=== PATIENT | female | born 1990 | race Caucasian/White ===

== ENCOUNTER 2017-03-27 17:39 | Outpatient (CLI) | payer OTHER ==
[~2017-03-27] VITALS: Ht 165.1 cm; Wt 76.0 kg
[2017-03-27] MEDS ORDERED: STOO100C PO (18:01)
[2017-03-27] MEDS ORDERED: PRENTAB9 PO (18:01)
[2017-03-27] MEDS ORDERED: FERR325T3 PO (18:01)
[2017-03-27] MEDS ORDERED: ASCO25TA PO (18:01)
[2017-03-27 18:04] VITALS: BP 114/55
== END 2017-03-27 19:00 | disposition home or self-care (01) ==
LOC: M LDO 17:39
PROVIDERS: ATTEND Advanced Practice Midwife
DX: O36.8130 Decreased fetal movements, third trimester, not applicable or unspecified (principal); Z3A.36 36 weeks gestation of pregnancy

== ENCOUNTER 2017-04-07 02:18 | Inpatient (IN) | payer OTHER ==
[~2017-04-07] VITALS: Ht 165.1 cm; Wt 75.0 kg
[~2017-04-07 02:18] MED LIST: ASCO25TA PO; FERR325T3 PO; PRENTAB9 PO; STOO100C PO
[2017-04-07] MEDS ORDERED: LR 1,000 ML IV SCH (03:40)
[2017-04-07 03:43] LABS: MEAN CORPUSCULAR HEMOGLOBIN 26.5 pg (27.0-33.0); MEAN CORPUSCULAR HGB CONC 32.6 g/dl (32.0-36.5); MEAN CORPUSCULAR VOLUME 81.3 fl (80.0-96.0); RED CELL DISTRIBUTION WIDTH 18.7 % (11.5-14.5); WHITE BLOOD COUNT 12.6 K/mm3 (4.0-10.0)
--- NOTE | 2017-04-07 04:10 | HPEPDOC ---
Obstetrical History & Physical General Date of Admission Apr 07, 2017 at 02:48 History of Present Illness 26 y/o at 40+0 with painful reg ctx's most of the night. No LOF/signif VB. Pos FM throughout. Admitted by RN and I was called at home with NST Cat 1 and 6 cm. Got into the tub and now out, just checked by same RN and is now 9 cm /BB. 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 History: No pertinent history Past Medical History Medical History Anxiety, depression, PTSD-all 3 well controlled-no meds Mild anemia-treated appropr Surgical History: Denies/None (colonoscopy 2009) Family History Significant Family History: No pertinent family hx Social History Marital Status: Family situation: Spouse/partner home Psychosocial History: Anxiety, Depression, PTSD * Smoker: non-smoker Alcohol: Denies Drugs: denies Abuse Violence Screening Have you been hit/kicked/slapp: No Have you been sexually assault: No Imunizations Tdap status: current Influenza Status: current Allergies Coded Allergies: Amoxicillin (Verified Allergy, Mild, PT STATES RASH, 03/27/17) Penicillins (Verified Allergy, Mild, PT STATES RASH, 03/27/17) Sulfa Antibiotics (Verified Allergy, Mild, RASH, 03/27/17) Albuterol (Verified Adverse Reaction, Mild, STATES TACHYCARDIA, 03/27/17) Medications Scheduled Ascorbic Acid (Vitamin C) 250 Mg Tab, 250 MG PO TID Docusate Sodium (Stool Softener) 100 Mg Cap, 100 MG PO DAILY Ferrous Sulfate (Ferrous Sulfate) 325 Mg Tab, 325 MG PO TID Multivitamins/ ( 27-0.8 mg) 1 Tab Tab, 1 TAB PO DAILY Physical Examination Physical Examination GENERAL: Alert and oriented times three. ABDOMEN: Gravid and non-tender to touch. FETUS: Is vertex (VTX) by sterile vaginal examination (SVE) per RUG CLEANER RATE: Regular rate and rhythm. LUNGS: Clear to auscultation (CTA). EXTREMITIES: No edema. Laboratory Data 24H LABS Laboratory Tests 2 04/07/17 03:03: Serology Scanned Report Hepatitis B Testing 04/07/17 03:30: CBC/BMP Laboratory Tests 04/07/17 03:30 Red Blood Count 4.54, Mean Corpuscular Volume 81.3, Mean Corpuscular Hemoglobin 26.5 L, Mean Corpuscular Hemoglobin Concent 32.6, Red Cell Distribution Width 18.7 H Urine Culture: No Growth Pertinent Laboratoy Data Blood Type: B+ RBC Antibody Screen: Negative HIV: Negative Hepatitis B: Negative Hepatitis C: Unknown Rapid Plasma Reagin: Immune Rubella: Immune Varicella: Immune Chlamydia/Gonorrhea: Negative Group B Streptococcus: Negative Quad Screen Test: Declined Cystic Fibrosis: Negative Anatomy Ultrasound Ultrasound Date: Nov 19, 2016 Placenta Location: Anterior Normal Anatomy: Yes Placenta Previa: No Steroid Therapy Steroid Therapy: No Assessment Variability: Moderate Accelerations: Positive Decelerations: None Tocometer Contractions: Yes Frequency: regular Duration: greater than 60 seconds Strength: palpated as strong Assessment/Plan Assessment Active labor. GBS neg. Plan Admit and orient. 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 Diet: clrs Group B Streptococcus (GBS) negative Labs and intravenous (IV) per unit protocol. Counseled on Pitocin and induction of labor (IOL). Lactated Ringers (LR): 125 mL/hr. Anticipate normal spontaneous delivery () C-S as appopriate, very unlikely Sessions SESSIONS,KAYLEIGH Pena MD Apr 07, 2017 04:10
[2017-04-07] MEDS ORDERED: OXYTOCIN 30 UNITS IN 0.9% NaCl 500ML IV BAG (J2590) As Ordered ONE (04:29)
[2017-04-07] MEDS ORDERED: OXYTOCIN DRIP 30 UNITS in APPROPRIATE DILUENT 1 EA IV SCH ×2 (05:17→06:58)
--- NOTE | 2017-04-07 05:27 | DNPDOC ---
[facility] Delivery Note Delivery Note DATE OF DELIVERY: Apr 07, 2017 at 02:48 PREDELIVERY DIAGNOSIS: 40 0/7 weeks' gestation and labor. POST DELIVERY DIAGNOSIS: Delivered. 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 Cloud ANESTHESIA: natural, lidocaine 1% for repair ESTIMATED BLOOD LOSS: 300 mL. FINDINGS: wt pending, female , Score 8/9, bandolero cord DELIVERY SUMMARY: Pushed very well, SROM with clr fluid prior to starting. KELLIE , No delay of the vtx or ant/post shoulders. To abd, good tone and spont cry. Cord C/C by FOB. Placenta intact. Fundus firm, pit going wide open. 2nd degr lac injected with 12 cc's 1%lidocaine, repaired with 3-0 vicryl. Good cosmesis/ hemostasis, vladimir'd well. Sessions MD CLOUD,KAYLEIGH Pena MD Apr 07, 2017 05:27
[2017-04-07] MEDS ORDERED: RHOGAM 300 MCG (1500 IU) INJ (J2790) IM SCH (05:30)
[2017-04-07] MEDS ORDERED: METOCLOPRAMIDE INJ 10MG/2ML VIAL (J2765) IV PRN (05:30)
[2017-04-07] MEDS ORDERED: DIBUCAINE 1% OINTMENT 30GM TOP PRN (05:30)
[2017-04-07] MEDS ORDERED: LIDOCAINE 1% MDV INJ 50 ML VIAL INFIL ONE (05:30)
[2017-04-07] MEDS ORDERED: MEASLES,MUMPS,RUBELLA VACCINE INJ (MMR-II) (90707) SC SCH (05:30)
[2017-04-07] MEDS ORDERED: miSOPROStol 200 MCG TAB (S0191) PR ONE (07:00)
[2017-04-07] MEDS ORDERED: METHYLERGONOVINE MALEATE 0.2 MG/ML VIAL (J2210) IM ONE (07:00)
[2017-04-07 07:10] VITALS: BP 124/73
--- NOTE | 2017-04-07 07:14 | IPNPDOC ---
Text Note Date of Service The patient was seen on 04/07/17. NOTE Called to room by RN, extra bleeding more than normal, Ut always firms up with massage but 400 EBL on top of my original 300 with delivery VSS Ut at U, not firm Bimanual done, vladimir'd moderately well, clot at SCOOTER evacuated, massage x3 thereafter with no clots, nl lochia only, massaged to firm Repair intact after sweep Limited TAUS with ~2 cm heterogeneous material present, no areas measure wider than this from fundus to Cx Given methergine 0.2 mg IM and Cytotec 1000 mcg [place] 15 min after the above, again massaged the Ut and now U, firm, nothing from vag noted Plan for watching close and CBC at noon and tomorrow AM, PO methergine series. SBAR to Dr Jorge at 0730. Sessions Nico FERRARI, I+O Nico LESTER I+O Laboratory Tests 04/07/17 03:30 Red Blood Count 4.54, Mean Corpuscular Volume 81.3, Mean Corpuscular Hemoglobin 26.5 L, Mean Corpuscular Hemoglobin Concent 32.6, Red Cell Distribution Width 18.7 H I&O- Last 24 Hours up to 6 AM 04/07/17 06:00 Output Total 300 ml Balance -300 ml SESSIONS,KAYLEIGH Pena MD Apr 07, 2017 07:14
[2017-04-07] MEDS: IBUPROFEN 800 MG TAB PO PRN (07:22)
[2017-04-07 08:58] VITALS: BP 133/62
[2017-04-07] MEDS: DOCUSATE SODIUM 100 MG CAP PO SCH ×2 (09:00→21:49)
[2017-04-07] MEDS: PRENATAL VITAMINS CHEWABLE TABLET PO SCH (09:00)
[2017-04-07] MEDS: METHYLERGONOVINE MALEATE 0.2 MG TAB PO SCH ×4 (11:17→23:24)
[2017-04-07 12:27] LABS: MEAN CORPUSCULAR HEMOGLOBIN 26.9 pg (27.0-33.0); MEAN CORPUSCULAR VOLUME 81.4 fl (80.0-96.0); RED CELL DISTRIBUTION WIDTH 18.6 % (11.5-14.5)
[2017-04-07] MEDS: ACETAMINOPHEN TAB 650MG DOSE (2X325MG) PO PRN ×2 (14:28→21:57)
[2017-04-07 18:00] VITALS: BP 131/80
[2017-04-08] MEDS: METHYLERGONOVINE MALEATE 0.2 MG TAB PO SCH (03:15)
[2017-04-08 06:06] VITALS: BP 111/59
[2017-04-08 06:40] LABS: MEAN CORPUSCULAR HEMOGLOBIN 27.1 pg (27.0-33.0); MEAN CORPUSCULAR HGB CONC 33.4 g/dl (32.0-36.5); MEAN CORPUSCULAR VOLUME 81.3 fl (80.0-96.0); RED CELL DISTRIBUTION WIDTH 18.6 % (11.5-14.5); WHITE BLOOD COUNT 11.2 K/mm3 (4.0-10.0)
[2017-04-08] MEDS: DOCUSATE SODIUM 100 MG CAP PO SCH ×2 (09:02→20:40)
[2017-04-08] MEDS: IBUPROFEN 800 MG TAB PO PRN ×2 (09:02→16:50)
[2017-04-08] MEDS: PRENATAL VITAMINS CHEWABLE TABLET PO SCH (09:02)
[2017-04-08 18:01] VITALS: BP 124/65
[2017-04-08] MEDS: ACETAMINOPHEN TAB 650MG DOSE (2X325MG) PO PRN (20:40)
[2017-04-09] MEDS: IBUPROFEN 800 MG TAB PO PRN (00:04)
--- NOTE | 2017-04-09 05:24 | IPNPDOC ---
Text Note Date of Service The patient was seen on 04/09/17. NOTE PPD2 prog note States feeling well, no complaints. No heavy VB. Pain controlled. Voiding, ambulatory. Bonding well and bottle feeding well. VSSAF CTAB RRR Ut at U-2, firm Ext no CCE a/p: Doing well. d/c this morning. To bonding if baby not released. Sessions VS,Nico, I+O VSNico I+O Laboratory Tests 04/08/17 06:19 Red Blood Count 3.85 L, Mean Corpuscular Volume 81.3, Mean Corpuscular Hemoglobin 27.1, Mean Corpuscular Hemoglobin Concent 33.4, Red Cell Distribution Width 18.6 H Vital Signs Date Time Temp Pulse Resp B/P (MAP) Pulse Ox O2 Delivery O2 Flow Rate FiO2 04/08/17 18:01 98.2 77 18 124/65 (84) 04/07/17 18:00 98 Room Air SESSIONS,KAYLEIGH Pena MD Apr 09, 2017 05:24
--- NOTE | 2017-04-09 05:25 | DS.PDOC ---
Discharge Summary General Date of Admission Apr 07, 2017 at 02:48 Date of Discharge [id number] Discharge Summary PROCEDURES PERFORMED DURING STAY: spontaneous vaginal delivery ADMITTING DIAGNOSIS: 1. Active Labor DISCHARGE DIAGNOSES: 1. Healthy female HOSPITAL COURSE: Admitted for active labor and delivery. Uncomplicated, see delivery note. DISCHARGE MEDICATIONS: Motrin, Tylenol, Colace, Dibucaine. Priti to start not before 4 weeks . Physical exam: see note from this morning LABORATORY DATA: Please see below. ACTIVITY: as tolerated. Nothing in vagina for 6 weeks. DIET: regular DISPOSITION:stable TIME SPENT ON DISCHARGE: Greater than 15 minutes. Sessions Vital Signs/I&Os Vital Signs Date Time Temp Pulse Resp B/P (MAP) Pulse Ox O2 Delivery O2 Flow Rate FiO2 04/08/17 18:01 98.2 77 18 124/65 (84) 04/07/17 18:00 98 Room Air Laboratory Data CBC/BMP Laboratory Tests 04/08/17 06:19 Red Blood Count 3.85 L, Mean Corpuscular Volume 81.3, Mean Corpuscular Hemoglobin 27.1, Mean Corpuscular Hemoglobin Concent 33.4, Red Cell Distribution Width 18.6 H Discharge Medications Scheduled Ascorbic Acid (Vitamin C) 250 Mg Tab, 250 MG PO TID, (Reported) Docusate Sodium (Stool Softener) 100 Mg Cap, 100 MG PO DAILY, (Reported) Ferrous Sulfate (Ferrous Sulfate) 325 Mg Tab, 325 MG PO TID, (Reported) Multivitamins/ ( 27-0.8 mg) 1 Tab Tab, 1 TAB PO DAILY, (Reported ) Allergies Coded Allergies: Amoxicillin (Verified Allergy, Mild, PT STATES RASH, 03/27/17) Penicillins (Verified Allergy, Mild, PT STATES RASH, 03/27/17) Sulfa Antibiotics (Verified Allergy, Mild, RASH, 03/27/17) Albuterol (Verified Adverse Reaction, Mild, STATES TACHYCARDIA, 03/27/17) SESSIONS,KAYLEIGH Pena MD Apr 09, 2017 05:25
[2017-04-09 05:51] VITALS: BP 112/58
[2017-04-09] MEDS: DOCUSATE SODIUM 100 MG CAP PO SCH (09:16)
[2017-04-09] MEDS: PRENATAL VITAMINS CHEWABLE TABLET PO SCH (09:16)
[2017-04-09] MEDS: ACETAMINOPHEN TAB 650MG DOSE (2X325MG) PO PRN (09:46)
[2017-04-09] MEDS ORDERED: COLA100C5 PO (11:26)
[2017-04-09] MEDS ORDERED: ACET50TA PO (11:26)
[2017-04-09] MEDS ORDERED: DIBU1OIN TOP (11:26)
[2017-04-09] MEDS ORDERED: IBUP-1114 PO (11:26)
== END 2017-04-09 12:55 | disposition home or self-care (01) | DRG 775 ==
LOC: M LDO 02:18 → M LDI 02:48 → M OBS 09:18
PROVIDERS: ADMIT Obstetrics & Gynecology; ATTEND Obstetrics & Gynecology
PROC: 10E0XZZ Delivery of Products of Conception, External Approach (ICD-10-PCS; principal; 2017-04-07)
PROC: 0KQM0ZZ Repair Perineum Muscle, Open Approach (ICD-10-PCS; 2017-04-07)
DX: O48.0 Post-term pregnancy (principal); Z37.0 Single live birth; Z3A.40 40 weeks gestation of pregnancy; Z88.0 Allergy status to penicillin; Z88.2 Allergy status to sulfonamides; Z88.8 Allergy status to other drugs, medicaments and biological substances; O70.1 Second degree perineal laceration during delivery; Z79.899 Other long term (current) drug therapy